=== PATIENT | female | born 1995 | race Caucasian/White ===

== ENCOUNTER 2022-01-13 06:06 | Emergency (ER) | payer OTHER ==
[~2022-01-13] VITALS: Ht 170.2 cm; Wt 54.4 kg
[2022-01-13 06:22] VITALS: BP 107/70
[2022-01-13] MEDS ORDERED: AMOX-430 PO (06:36)
[2022-01-13] MEDS ORDERED: ACETAMINOPHEN ES 500 MG TABLET ONE (06:45)
[2022-01-13] MEDS ORDERED: ACETAMINOPHEN ES 500 MG TABLET PO ONE (07:00)
== END 2022-01-13 06:47 | disposition home or self-care (01) ==
LOC: ER 06:22
DX: J02.9 Acute pharyngitis, unspecified (principal)
CPT/HCPCS: 86403-TC; 87070-TC